=== PATIENT | female | born 1995 | race African-American/Black ===

== ENCOUNTER 2023-05-18 10:27 | Emergency (ER) | payer SELFPAY ==
[2023-05-18 10:43] VITALS: BP 137/80; PULSE 80; RESP 14; TEMP 36.5; O2SAT 99; BMI 38.9
--- NOTE | 2023-05-18 10:48 | DI.US.S_ITS ---
PROCEDURE: US OB <= 14 WEEKS FETUS INDICATIONS: ? 9 week demise, no vaginal bleeding/cramping TECHNIQUE: Real-time scanning was performed of the fetus and maternal pelvic organs, with image documentation. Endovaginal scanning was also performed to better visualize the fetus and maternal ovaries. COMPARISON: None. FINDINGS: There is an intrauterine fluid collection corresponding to a 6 week 0 day gestation. No cardiac activity is seen. Maternal organs: Ovaries are within normal limits. IMPRESSION: Findings consistent with a single early intrauterine gestation. Continued follow-up is recommended to establish viability. We strive to produce accurate, complete, and clear reports of imaging services. To assist us in improving patient care, this report was composed using standard report templates and voice recognition software. Therefore, it may contain abnormal punctuation, insertions and/or omissions. Occasional wrong-word or sound-alike substitutions may occur. Though we review the report and make efforts to correct it, we do recommend that the report be read carefully in proper context to recognize any text inaccuracies. Dictated by: Montez Bowman M.D. on 05/18/2023 at 12:20 Approved by: Montez Bowman M.D. on 05/18/2023 at 12:22
[2023-05-18 11:17] LABS: Add Manual Diff / Slide Review NO; Basophils Absolute Auto 0 /uL (0-100); Basophils Percent Auto 0.8 % (0-2); Eosinophils Absolute Auto 100 /uL (0-450); Eosinophils Percent Auto 2.2 % (2-4); Hematocrit 39.7 % (36-46); Hemoglobin 13.6 g/dL (12.0-16.0); Lymphocytes Absolute Auto 1500 /uL (1100-4500); Mean Corpuscular HGB Conc 34.3 % (30-36); Mean Corpuscular Hemoglobin 32.2 PG (26-34); Mean Corpuscular Volume 93.9 fL (80-100); Monocytes Absolute Auto 400 /uL (0-900); Monocytes Percent Auto 7.9 % (3-14); Neutrophils Absolute Auto 2900 /uL (1500-7000); Neutrophils Percent Auto 58.1 % (50-75); Platelet Count 244 X10^3/uL (150-400); Red Blood Cell Count 4.22 X10^6/uL (4.0-5.2); Red Cell Distribution Width 12.8 % (11.6-14.8)
[2023-05-18 11:30] LABS: Alanine Aminotransferase 11 IU/L (<35); Albumin 4.4 g/dL (3.5-5.0); Albumin Globulin Ratio 1.3 (1.0-2.8); Alkaline Phosphatase 73 U/L (38-126); Aspartate Aminotransferase 19 IU/L (14-36); BUN Creatinine Ratio 10.9 (6-22); Bilirubin Total 0.7 mg/dL (0.2-1.3); Blood Urea Nitrogen 5 mg/dL (7-17); Calcium 9.2 mg/dL (8.4-10.2); Carbon Dioxide 18 mmol/L (22-32); Chloride 108 mmol/L (98-107); Estimated Glomerular Filt Rate > 60 mL/min (>60); Globulin 3.5 g/dL (1.7-4.1); Glucose 93 mg/dL (70-100); Potassium 3.8 mmol/L (3.4-5.1); Sodium 135 mmol/L (137-145); Total Protein 7.9 g/dL (6.3-8.2)
[2023-05-18 12:14] LABS: HCG Quantitative /Beta subunit 19401 mIU/mL; HEMOLYSIS 17 (0-50)
[2023-05-18 12:42] VITALS: BP 121/77; PULSE 88; RESP 16; O2SAT 97
--- NOTE | 2023-05-18 12:47 | PC.NURSE ---
Pt has urine cup but states that she is unable to provide a urine sample at this time
--- NOTE | 2023-05-18 15:14 | ED.RECABL ---
HPI - Recheck/Abnormal Lab/Rx <Doug Velarde PA-C - Last Filed: 05/18/23 15:28> General Chief Complaint: Recheck/Abnormal Lab/Rx Stated Complaint: DNC Time Seen by Provider: 05/18/23 11:26 Source: patient Mode of arrival: Ambulatory History of Present Illness HPI narrative: 27-year-old female presents to the ED due to concerns of a miscarriage. Patient's last menstrual period was in early March 2023. Patient states she had a positive home test in April. [facility], had an ultrasound which dated her at a 9 week . Patient states that she was notified that she had a miscarriage and that she should expect to spontaneously complete the miscarriage. Patient states that she did not have any repeat studies or serial exams. Patient is here in the ED since she was told by the clinic that she could get a D&C here. Patient states that since her last menstrual period, she has had some pelvic cramping in April, describes it as sporadic. Patient states that she has had no vaginal bleeding or spotting other than the day after she had the ultrasound [facility] when she noted some red tinged mucousy discharge. Patient denies having any other bleeding since then. This is patient's 1st . Patient denies fever, chills, dysuria, chest pain, shortness of breath, lightheadedness, syncope. Related Data Allergies Allergy/AdvReac Type Severity Reaction Status Date / Time Penicillins Allergy Severe throw up Verified 05/18/23 10:48 immediately when taken it Review of Systems <Doug Velarde PA-C - Last Filed: 05/18/23 15:28> Review of Systems ROS Unobtainable: All systems reviewed & are unremarkable except as noted in HPI and below Constitutional Constitutional: Denies chills, Denies fatigue, Denies fever(s), Denies frequent falls, Denies lethargy and Denies weakness Eyes Eyes: Denies change in vision, Denies eye discharge, Denies irritation and Denies loss of vision ENT Ears, Nose, Mouth, and Throat: Denies change in voice, Denies dizziness, Denies neck pain, Denies sore throat and Denies throat swelling Cardiovascular Cardiovascular: Denies chest pain, Denies irregular heart rhythm, Denies lightheadedness, Denies palpitations, Denies dyspnea, Denies dyspnea on exertion and Denies orthopnea Respiratory Respiratory: Denies cough, Denies dyspnea, Denies dyspnea on exertion and Denies wheezing Gastrointestinal Gastrointestinal: Denies abdominal pain, Denies change in bowel habits, Denies diarrhea, Denies nausea and Denies vomiting Musculoskeletal Musculoskeletal: Denies neck pain and Denies numbness Integumentary/Breasts Skin/Breast: Denies pruritus, Denies erythema, Denies rash and Denies wounds Neurologic Neurologic: Denies behavioral changes, Denies confusion, Denies dizziness, Denies frequent falls, Denies loss of vision, Denies numbness and Denies weakness Psychiatric Psychiatric: Denies anxiety, Denies behavioral changes, Denies confusion, Denies depression, Denies homicidal ideation and Denies suicidal ideation Endocrine Endocrine: Denies fatigue, Denies flushing and Denies palpitations Hematologic/Lymphatic Hematologic/Lymphatic: Denies easy bruising Allergic/Immunologic Allergic/Immunologic: Denies urticaria, Denies throat swelling and Denies wheezing Patient History <Doug Velarde PA-C - Last Filed: 05/18/23 15:28> Social History Smoking Status: Never smoker Smoking Status: Never smoker alcohol intake frequency: 0-2 drinks per day Substance Use Type: marijuana Exam <Doug Velarde PA-C - Last Filed: 05/18/23 15:28> Narrative Exam Narrative: Const General:?cooperative, healthy appearing and comfortable [facility] Head:?normal to inspection Ears:?hearing grossly normal bilaterally Nose:?external nose normal Face and sinus:?normal facial exam and sinuses nontender Mouth:?oral mucosae normal Throat:?posterior oropharynx normal Eyes General:?appearance normal, both eyes and all related structures Neck Neck:?normal visual inspection and no lymphadenopathy noted Resp Effort & Inspection:?normal respiratory effort Auscultation:?clear to auscultation bilaterally Cardio Rate:?regular rate Rhythm:?regular rhythm GI Abdomen is soft, nontender to palpation. Neuro General:?patient alert, patient awake and patient oriented x3 Initial Vital Signs Initial Vital Signs: Vital Signs Temperature 97.7 F 05/18/23 10:43 Pulse Rate 80 05/18/23 10:43 Respiratory Rate 14 05/18/23 10:43 Blood Pressure 137/80 05/18/23 10:43 Pulse Oximetry 99 05/18/23 10:43 Oxygen Delivery Method Room Air 05/18/23 10:43 <Vinita Matthews DO - Last Filed: 05/18/23 19:53> Initial Vital Signs Initial Vital Signs: Vital Signs Temperature 97.7 F 05/18/23 10:43 Pulse Rate 80 05/18/23 10:43 Respiratory Rate 14 05/18/23 10:43 Blood Pressure 137/80 05/18/23 10:43 Pulse Oximetry 99 05/18/23 10:43 Oxygen Delivery Method Room Air 05/18/23 10:43 Course <Doug Velarde PA-C - Last Filed: 05/18/23 15:28> Orders Ordered: ED Orders 05/18/23 11:10 Complete Blood Count AUTO DIFF Stat Comprehensive Metabolic Panel Stat HCG Quantitative /Beta subunit Stat Type and Screen Stat Vital Signs Vital signs: Vital Signs - 8 hr 05/18/23 12:42 Pulse Rate 88 Respiratory Rate 16 Blood Pressure 121/77 Pulse Oximetry 97 Oxygen Delivery Method Room Air <Vinita Matthews DO - Last Filed: 05/18/23 19:53> Orders Ordered: ED Orders 05/18/23 11:10 Complete Blood Count AUTO DIFF Stat Comprehensive Metabolic Panel Stat HCG Quantitative /Beta subunit Stat Type and Screen Stat Vital Signs Vital signs: Vital Signs - 8 hr 05/18/23 12:42 Pulse Rate 88 Respiratory Rate 16 Blood Pressure 121/77 Pulse Oximetry 97 Oxygen Delivery Method Room Air MDM - Recheck/Abnormal Lab/Rx <SUELLEN Brady Last Filed: 05/18/23 15:28> Lab Data 05/18/23 11:10 05/18/23 11:10 Labs: Lab Results 05/18/23 Range/Units 11:10 WBC 5.0 (4.5-11.0) X10^3/uL RBC 4.22 (4.0-5.2) X10^6/uL Hgb 13.6 (12.0-16.0) g/dL Hct 39.7 (36-46) % MCV 93.9 (80-100) fL MCH 32.2 (26-34) PG MCHC 34.3 (30-36) % RDW 12.8 (11.6-14.8) % Plt Count 244 (150-400) X10^3/uL Neut % (Auto) 58.1 (50-75) % Lymph % (Auto) 31.0 (25-40) % [place] % (Auto) 7.9 (3-14) % Eos % (Auto) 2.2 (2-4) % Baso % (Auto) 0.8 (0-2) % Neut # (Auto) 2900 (6503-3881) /uL Lymph # (Auto) 1500 (9026-4666) /uL [place] # (Auto) 400 (0-900) /uL Eos # (Auto) 100 (0-450) /uL Baso # (Auto) 0 (0-100) /uL Sodium 135 L (137-145) mmol/L Potassium 3.8 (3.4-5.1) mmol/L Chloride 108 H (98-107) mmol/L Carbon Dioxide 18 L (22-32) mmol/L BUN 5 L (7-17) mg/dL Creatinine 0.46 L (0.52-1.04) mg/dL Estimated GFR > 60 (>60) mL/min BUN/Creatinine Ratio 10.9 (6-22) Glucose 93 (70-100) mg/dL Calcium 9.2 (8.4-10.2) mg/dL Total Bilirubin 0.7 (0.2-1.3) mg/dL AST 19 (14-36) IU/L ALT 11 (<35) IU/L Alkaline Phosphatase 73 (38-126) U/L Total Protein 7.9 (6.3-8.2) g/dL Albumin 4.4 (3.5-5.0) g/dL Globulin 3.5 (1.7-4.1) g/dL Albumin/Globulin Ratio 1.3 (1.0-2.8) HCG, Quant 92201 mIU/mL Blood Type O Positive Antibody Screen Negative MDM Narrative Medical decision making narrative: 27-year-old female presents to the ED due to concerns of a miscarriage. Concern for intrauterine versus ectopic versus threatened miscarriage versus other. Labs, type and screen, quantitative hCG, ultrasound were performed. Labs within normal limits. [place] was [address]. Ultrasound findings consistent with a single early intrauterine gestation corresponding to a 6 week 0 day gestation. No cardiac activity was seen. Discussed findings with patient. Discussed possibility of viable intrauterine versus miscarriage. Counseled patient on the need for serial HCGs measurements and ultrasounds to establish viability. Recommend patient follow-up with [facility] as soon as possible. ED return precautions discussed with patient. Patient verbalized understanding. Medical records reviewed: Yes <Vinita Radha Matthews, DO - Last Filed: 05/18/23 19:53> Lab Data Labs: Lab Results 05/18/23 Range/Units 11:10 WBC 5.0 (4.5-11.0) X10^3/uL RBC 4.22 (4.0-5.2) X10^6/uL Hgb 13.6 (12.0-16.0) g/dL Hct 39.7 (36-46) % MCV 93.9 (80-100) fL MCH 32.2 (26-34) PG MCHC 34.3 (30-36) % RDW 12.8 (11.6-14.8) % Plt Count 244 (150-400) X10^3/uL Neut % (Auto) 58.1 (50-75) % Lymph % (Auto) 31.0 (25-40) % [place] % (Auto) 7.9 (3-14) % Eos % (Auto) 2.2 (2-4) % Baso % (Auto) 0.8 (0-2) % Neut # (Auto) 2900 (2488-7585) /uL Lymph # (Auto) 1500 (6539-1373) /uL [place] # (Auto) 400 (0-900) /uL Eos # (Auto) 100 (0-450) /uL Baso # (Auto) 0 (0-100) /uL Sodium 135 L (137-145) mmol/L Potassium 3.8 (3.4-5.1) mmol/L Chloride 108 H (98-107) mmol/L Carbon Dioxide 18 L (22-32) mmol/L BUN 5 L (7-17) mg/dL Creatinine 0.46 L (0.52-1.04) mg/dL Estimated GFR > 60 (>60) mL/min BUN/Creatinine Ratio 10.9 (6-22) Glucose 93 (70-100) mg/dL Calcium 9.2 (8.4-10.2) mg/dL Total Bilirubin 0.7 (0.2-1.3) mg/dL AST 19 (14-36) IU/L ALT 11 (<35) IU/L Alkaline Phosphatase 73 (38-126) U/L Total Protein 7.9 (6.3-8.2) g/dL Albumin 4.4 (3.5-5.0) g/dL Globulin 3.5 (1.7-4.1) g/dL Albumin/Globulin Ratio 1.3 (1.0-2.8) HCG, Quant 49378 mIU/mL Blood Type O Positive Antibody Screen Negative Discharge Plan Departure Patient Disposition: Home Clinical Impression: Qualifiers: Weeks of gestation: less than 8 weeks Qualified Code(s): Z3A.01 - Less than 8 weeks gestation of Instructions: DI for Abdominal Pain -- Early Activity Restrictions/Additional Instructions: You were evaluated in ED today for an early . Your labs were normal. [place] [address], which is consistent with an early . Your ultrasound shows a single early in the uterus. The measures at 6 weeks gestation. No heart beat was visualized on ultrasound, however that can happen at this very early stage of . It is important that you follow-up with an OBGYN as soon as possible, and next steps will be for you to have a follow-up blood test for the hCG and an ultrasound to monitor the . You may call [facility] at [phone] to schedule an appointment with 1 of the providers at the practice. Please return to the ED if you have worsening symptoms, vaginal bleeding, chest pain, shortness of breath, persistent vomiting. Stand Alone Forms: Patient Portal/API ED Sign-out <Vinita Matthews DO - Last Filed: 05/18/23 19:53> Cosign ED Attending Claudia Attestation: I was immediately available in the department for consultation.
== END 2023-05-18 13:11 | disposition home or self-care (01) ==
PROVIDERS: Emergency Medicine; Emergency Provider Student in an Organized Health Care Education/Training Program
DX: O26.91 Pregnancy related conditions, unspecified, first trimester (principal); Z3A.01 Less than 8 weeks gestation of pregnancy
CPT/HCPCS: 36415; 76801; 76817; 80053; 84702; 85025; 86850; 86900; 86901; 99283; 99284